=== PATIENT | female | born 1990 | race Caucasian/White ===

== ENCOUNTER 2025-01-30 11:48 | Outpatient (CLI) | payer OTHER, SELFPAY ==
--- OUTSIDE RECORDS SUMMARY | 2025-01-28 10:30 | XMS_ITS ---
Author Organization [facility] Address [address] [facility] [address] [place] [address] Care Team Providers Care Environmental Geologist Name Role Phone Candice Vazquez Unavailable [phone] Allergies No Known Allergies Results Component Value Reference Range Notes CBC Venipuncture (in house) Reviewed date:01/30/2025 08:41:39 AM Interpretation:Normal Performing Lab: Notes/Report: Normal wbc 4.9 3.5 - 10 lymph 39.8% 15 - 50 mid 7.6% 2 - 15 gran 52.6% 35 - 80 rbc 4.92 3.5 - 5.5 hgb 14.2 11.5 - 16.5 hct 40.6 35 - 55 mcv 82.6 75 - 100 mch 29.0 25 - 35 mchc 35.1 31 - 38 platlet 244 100 - 400 P-Vitamin B12 Reviewed date:01/30/2025 08:41:51 AM Interpretation:378 Performing Lab: Notes/Report: Test performed by [facility] [address] [place] [address], [place] [address] Abimael Neville MD, Security Door Installer CLIA: [id number] Vitamin B12 248 768-6042 pg/mL P-Comprehensive Metabolic Pa clarissa (CMP) Reviewed date:01/30/2025 08:41:56 AM Interpretation:Normal Performing Lab: Notes/Report: Test performed by [facility] [address] [place] [address], [place] [address] Abimael Neville MD, Security Door Installer CLIA: [id number] Sodium 141 135-145 mmol/L Potassium 4.6 3.5-5.3 mmol/L Chloride 105 97-108 mmol/L CO2 28 20-32 mmol/L Glucose 76 65-99 mg/dL BUN 14 6-20 mg/dL Creatinine 0.89 0.50-1.00 mg/dL Calcium 9.3 8.6-10.4 mg/dL eGFR by Creatinine 87 >59 mL/min/1.73m2 Protein 6.9 6.0-8.3 g/dL Albumin 4.4 3.5-5.3 g/dL Alkaline Phosphatase 77 35-121 IU/L ALT (SGPT) 18 <5-47 IU/L AST (SGOT) 20 <5-40 IU/L Bilirubin, Total 0.6 <0.2-1.2 mg/dL A/G Ratio 1.8 1.1-2.5 P-Sed Rate (ESR) Reviewed date:01/30/2025 08:42:01 AM Interpretation:Normal Performing Lab: Notes/Report: Test performed by [facility] [address] [place], [place] [address] [address] , [address], [place] [address] Abimael Neville MD, Security Door Installer CLIA: [id number] Erythrocyte Sedimentation Rate (ESR), Automated 2 <26 mm/hr P-TSH Reviewed date:01/30/2025 08:42:13 AM Interpretation:Normal Performing Lab: Notes/Report: Test performed by [facility] [address] [place] [address] , [address], [place] [address] Abimael Neville MD, Security Door Installer CLIA: [id number] TSH 1.60 0.43-5.25 mU/L REASON FOR VISIT to get established, migraines Medications Medication SIG (Take, Route, Frequency, Duration) Notes Start Date End Date Status Blisovi FE 06/04 1-20 MG-MCG 1 tablet Orally Once a day A ctive Rimegepant Sulfate 75 MG 1 tablet on the tongue and allow to dissolve Orally as needed 01/28/2025 Active Problems Problem Type SNOMED Code ICD Code Onset Dates Problem Status W/U Status Risk Notes Problem Cardiac dysrhythmia (462981674) Cardiac dysrhythmia, unspecified (I49.9) Active confirmed Vital Signs Blood pressure systolic 118 mm Hg 01/29/20 25 Blood pressure diastolic 72 mm Hg 025 Heart Rate 82 /min 01/28/2025 Height 61 in 01/28/2025 Weight 126.0 lbs 01/28/2025 BMI 23.8 kg/m2 01/28/2025 Encounters Encounter Location Date Provider Diagnosis [facility] [address] [place] [id number] 01/28/2025 Candice Vazquez Episodic migraine G43.909 and Cardiac dysrhythmia, unspecified I49.9 Assessments Encounter Date Diagnosis (ICD Code) Assessment Notes Treatment Notes Treatment Clinical Notes Section Notes 01/28/2025 Episodic migraine (ICD-10 - G43.909) 01/28/2025 Cardiac dysrhythmia, unspecified (ICD-10 - I49.9) Plan Of Treatment Medication Medication Name Sig Start Date Stop Date Notes Rimegepant Sulfate 75 MG 1 tablet on the tongue and allow to dissolve Orally as needed 01/28/2025 Pending Test Test Name Order Date Echocardiogram 01/28/2025 EKG 01/28/2025 Next Appt Details Follow Up: 2 Months, Reason: Provider Name:Candice Earl er, 04/01/2025 11:15:00 AM, [facility], [address], [place], [id number], Progress Notes * Ted DOMINGUEZeDOB:[birth year] (34 yo F)Acc No.[id number]:01/28/2025 Progress Notes Patient: Ritika IVEY Provider: Candice Vazquez M.D. :1990 A ge:34 Y S ex:Female Date:01/28/2025 Address:[address] [place] [address], [id number] Subjective: * Chief Complaints: * 1 . To get established, migraines. * HPI: H PI: The pt is here today to establish care and to discuss migraine headaches. Pt states she has tried Imitrex in the past, but that only helps if she takes it as soon as the migraine starts. Not frequent but there are occsions where she can for several days. Not related to menses. Not aware of food connections. Thyroid disease in family. Healty otherwise. Has had MRI evaluations. With childhood migraines she took Depakote and Phenobarbital. Did have some history of tachycardias, especially when young. * Medical History: S easonal allergies, Epilepsy childhood. * Family History: F ather: , family history unknown . M other: alive, diagnosed with Hypertension, Stroke, Heart Disease. M aternal Grand Father: alive, diagnosed with Heart Disease. M aternal Grand Mother: alive, diagnosed with Diabetes, Heart Disease. 1 brother(s) , 1 sister(s) - healthy. . Father of Covid. Mother had a mild stroke. * Social History: C URRENT TOBACCO USE: No . C affeine: yes, frequency: 3 cups coffee per day. Marital Status: . Alcohol: no. 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 Recreational drug use: no. * Medications: T ankush Blisovi FE 06/04 1-20 MG-MCG Tablet 1 tablet Orally Once a day , Medication List reviewed and reconciled with the patient * Allergies: N .K.D.A. Objective: * Vitals: W t: 126.0, Temp: 98.3, BP: 118/72, HR: 82, Nurse: HÉCTOR, Ht: 61, BMI:23.8. * Examination: G eneral Examination: General Appearance: N AD. H EENT: S clera and conjunctiva clear, PERRLA, fundi WNL, discs sharp. O ral cavity: n o lesions, mucosa moist and WNL, no erythema. N jens: s upple, no lymphadenopathy. C hest: n ormal shape and expansion. H eart: R SR, no murmurs, respiratory variability. L ungs: c lear to auscultation. N eurologic Exam: I ntact, gait normal. S kin: n ormal, no rash. P eripheral pulses: n ormal (2+) bilaterally. E xtremities: n o leg edema. Assessment: * Assessment: 1. E pisodic migraine - G43.909 (Primary) 2 . C ardiac dysrhythmia, unspecified - I49.9 Plan: * Treatment: 2. C ardiac dysrhythmia, unspecified L AB: P-Vitamin B12 (Collection Date & Time - 01/28/2025 02:57 PM) 3 78 Value Reference Range V itamin B12 485 626-8963 - pg/mL ?LAB: P-Comprehensive Metabolic Panel (CMP) (Collection Date & Time - 01/28/2025 02:57 PM)?Normal* Value Reference Range A /G Ratio 1.8 1.1-2.5 - * A lbumin 4.4 3.5-5.3 - g/dL * A lkaline Phosphatase 77 35-121 - IU/L * A LT (SGPT) 18 <5-47 - IU/L * A ST (SGOT) 20 <5-40 - IU/L * B ilirubin, Total 0.6 <0.2-1.2 - mg/dL * B UN 14 6-20 - mg/dL * C alcium 9.3 8.6-10.4 - mg/dL * C hloride 105 97-108 - mmol/L * C O2 28 20-32 - mmol/L * C reatinine 0.89 0.50-1.00 - mg/dL * G lucose 76 65-99 - mg/dL * P otassium 4.6 3.5-5.3 - mmol/L * S odium 141 135-145 - mmol/L * P rotein 6.9 6.0-8.3 - g/dL * e GFR by Creatinine 87 >59 - mL/min/1.73m2 ?LAB: P-Sed Rate (ESR) (Collection Date & Time - 01/28/2025 02:57 PM)?Normal * Value Reference Range E rythrocyte Sedimentation Rate (ESR), Automated 2 <26 - mm/hr ?LAB: P-TSH (Collection Date & Time - 01/28/2025 02:57 PM)?Normal* Value Reference Range T SH 1.60 0.43-5.25 - mU/L ?LAB: CBC Venipuncture (in house) (Collection Date & Time - 01/28/2025)? Normal* Value Reference Range w bc 4.9 3.5 - 10 * l ymph 39.8% 15 - 50 * m id 7.6% 2 - 15 * g ran 52.6% 35 - 80 * r bc 4.92 3.5 - 5.5 * h gb 14.2 11.5 - 16.5 * h ct 40.6 35 - 55 * m cv 82.6 75 - 100 * m ch 29.0 25 - 35 * m chc 35.1 31 - 38 * p latlet 244 100 - 400 * Renetta Beatty 01/28/2025 04 :47:22 PM EDT > pt informed ?Imaging: Echocardiogram* Sera Mcmahon 01/29/2025 10:2 8:25 AM EDT > [facility] ?Imaging: EKG* Sera Mcmahon 01/28/2025 03:4 7:09 PM EDT > printed to give to patient * Procedure Codes: 8 5025 CBC WITH AUTO DIFF, 01031 VENIPUNCT, ROUTINE* * Follow Up: 2 Months * Images: Billing Information: * Visit Code: 84723 Office Visit, New Pt., Level 3. * Procedure Codes: 81255 CBC WITH AUTO DIFF. 42699 VENIPUNCT, ROUTINE*. * Electronic signature of Candice Vazquez MD on 01/30/2025 at 12:01 PM EDT Sign off status: Pending * Provider: Candice Vazquez M.D. Date: 0 01/28/2025 Generated for Tamikoi shay/Hannah/eTransmitting on: 0 01/30/2025 12:01 PM EDT History and Physical Notes * Examination Category Sub-Category Detail Notes Category Not es General Examination HEENT: Sclera and c onjunctiva clear, PERRLA, fundi WNL, discs sharp Heart: RSR, no murmurs, res piratory variability Lungs: clear to auscultatio n Extremities: no leg edema General Appearance: NAD Skin: normal, no rash Neurologic Exam: Intact, gait normal Neck: supple, no lymphaden opathy Oral cavity: no lesions, mucosa m oist and WNL, no erythema Peripheral pulses: normal (2+) bilatera lly Chest: normal shape and exp ansion
--- OUTSIDE RECORDS SUMMARY | 2025-01-30 12:01 | XMS_ITS | Clinical Summary ---
Author Organization [facility] Address [address] [place] [address] Care Team Providers Care Crab Butcher Name Role Phone Mandy Ibarra MD Primary Care Provider [phone] Allergies Active Allergy Reactions Criticality Noted Date Comments Vancomycin Swelling 04/27/2023 Redness on back of neck and scalp Medications norethindrone-et hinyl estradiol (BLISOVI FE 06/04) 1-20 MG-MCG per tablet Take 1 tablet by mouth daily. 84 tablet 4 06/27/2024 Active Active Problems Problem Noted Date Diagnosed Date Conductive hearing loss, bilateral 10/24/2017 Impacted cerumen, bilateral 10/24/2017 Immunizations Immunization Administration Dates Next Due Tdap (Tetanus, Diphtheria & Pertussis) 6 Vitamin B12 04/12/2012 Family History Medical History Relation Name Comments Cancer Maternal Aunt Heart Failure Maternal Grandfather Diabetes Maternal Grandmother Heart Failure Maternal Grandmother Thyroid Disease Maternal Grandmother Thyroid Disease Mother Relation Name Status Comments Brother Alive Father COVID Father Maternal Aunt Maternal Grandfather Alive Maternal Grandmother Alive Mother Alive Mother Other 1 Sister 1 Other 2 Brother 1 Paternal Grandfather unknown Paternal Grandmother unknown Sister Alive Social History Tobacco Use Types Packs/Day Years Used Date Smoking Tobacco: Never Smokeless Tobacco: Never Tobacco Cessation:Counseling Given: No Alcohol Use Standard Drinks/Week Comments No 0 (1 standard drink = 0.6 oz pur e alcohol) Food Insecurities Answer Date Recorded Worried about running out of food Not on file 06/06/2023 Food Bought Not on file 06/06/2023 Housing/Utilities Answer Date Recorded Worried about losing home Not on file 2023 Stayed outside house Not on file 06/06/2023 Unable to get utilities Not on file 06/06/19 Interpersonal Safety Answer Date Record ed Feel physically or emotionally unsafe where curr ently live Not on file 06/06/2023 Harm by anyone Not on file 06/06/2023 Emotionally Harmed Not on file 06/06/2023 Transportation Answer Date Recorded Worried about transportation Not on file Comments No Sex and Gender Information Value Date Recorded Sex Assigned at Not on file Legal Sex Female 10:45 PM EDT Gender Identity Not on file Sexual Orientation Not on file Last Filed Vital Signs Vital Sign Reading Time Taken Comments Blood Pressure 119/79 06/27/2024 8:44 AM EST Pulse 73 06/27/2024 8:44 AM EST Temperature 36.8 C (98.2 F) 09/28/2019 10:27 AM EDT Respiratory Rate - - Oxygen Saturation 99% 06/27/2024 8:44 AM EST Inhaled Oxygen Concentration - - Weight 60.1 kg (132 lb 6.4 oz) 06/27/2024 8:44 A M EST Height 154.9 cm (5' 1 ) 06/27/2024 8:44 AM EST Body Mass Index 25.02 06/27/2024 8:44 AM EST Plan of Treatment Health Maintenance Due Date Last Done Comments HPV (1 - 3-dose SCDM series) 2017 Influenza Vaccine (#1) 2025 DTap,Tdap,and Td (2 - Td or Tdap) 04/20/2026 04/20/2016 Pap Screening 06/27/2027 06/27/2024, 10/0 07/2021, 11/12/2019, Additional history exists RSV Vaccine (60+ or ) (1 - 1-dose 75+ series) 2065 Meningococcal conjugate valent 4 (MCV4) Aged Out No longer eligible based on patient's age to complete this topic Pneumococcal 0-49 Aged Out No longer eligible based on patient's age to complete this topic RSV Immunization (<20 months) Aged Out No longer eligible based on patient's age to complete this topic Procedures Procedure Name Priority Date/Time Associated Diagnosis Comments CYTOLOGY TOOL AND DIE MAKER/DESIGNER Today 06/27/2024 9:07 AM EST Encounter for gynecological examination (general) (routine) without abnormal findings from Last 3 Months or Most Recently Relevant to Health Maintenance Results * CYTOLOGY TOOL AND DIE MAKER/DESIGNER (06/27/2024 9:07 AM EST) CYTOLOGY-TOOL AND DIE MAKER/DESIGNER CYTOLOGY GYNECOLOGICAL REPORT Name: RITIKA GERARDO [facility]#: [id number] Case #: [id number] Final Cytologic Diagnosis A. Thinprep Cervical/Endocervic al with HPV screen and 16/18 Genotyping if Indicated: Adequacy: Satisfactory for evaluation, endocervical transformation zone component present. Interpretation: Negative for intraepithelial lesion or malignancy. This specimen has been analyzed by the ThinPrep Imaging System ([employer] an automated imaging and review system, which assists the field software engineer and/or pathologist in evaluation of cells on Thinprep Pap tests. Electronically Signed Out By DAMARIS Soriano(ASCP) HPV HIGH RISK WITH REFLEX Not Detected 06/29/2024 Text/Comments: This test was performed using the FDA Approved APTIMA HPV mRNA assay which detects E6/E7 messenger RNA of High Risk HPV types (16, 18, 31, 33, 35, 39, 45, 51, 52, 56, 58, 59, 66, and 68). This assay is intended for use in women 21 years or older with ASC-US cervical cytology or women 30 years or older. This assay is not intended to substitute for regular cervical cytology screening. Detection of HPV using the APTIMA HPV Assay does not differentiate HPV types and cannot evaluate persistence of any one type. The use of this assay has not been evaluated for the management of HPV vaccinated women, women with prior ablative or excisional therapy, hysterectomy, or who are . Sensitivities may be affected by collection methods, stage of infection, and the presence of interfering substances. Results of this assay should be interpreted in conjunction with other available laboratory and clinical data. Thin Prep 06/28/2024 CERVIX 06/28/2024 Source of Specimen(s) A: Thinprep Cervical/Endocervic al with HPV screen and 16/18 Genotyping if Indicated Clinical History Menstrual History: Normal Contraceptive History: OC/BCP Signed out at [facility], [address] [place] [address] [facility] Non-Formatted Report [facility] 06/27/2024 9:07 AM EST 06/28/2024 11:05 AM EST us Zoya Oliveros MD PATHOLOGY/CYTOLOGY ORDERABLE S Final Result [facility] [address] [place] [address] from Last 3 Months or Most Recently Relevant to Health Maintenance [facility] Care Teams Crab Butcher Relationship Specialty Start Date End Date Mandy Ibarra MD PCP - General Internal Medicine 08/17/12
--- OUTSIDE RECORDS SUMMARY | 2025-01-30 12:01 | XMS_ITS | Encounter Summary ---
Author Organization [facility] Address [address] [place] [address] Care Team Providers Care Bag Turner Name Role Phone Mandy Ibarra MD Primary Care Provider [phone] Shanelle Oliveros MD [facility] Karmen Phillips MD Primary Care Provider [phone] Encounter Details Date Type Department Care Team (Late st Contact Info) Description 10/29/2019 E-Visit [facility] Information Desk [address] [place] [address] Mychart, Generic Provider Social History Tobacco Use Types Packs/Day Years Used Date Smoking Tobacco: Never Alcohol Use Standard Drinks/Week Comments No 0 (1 standard drink = 0.6 oz pur e alcohol) Comments Unknown Sex and Gender Information Value Date Recorded Sex Assigned at Not on file Legal Sex Female 1:25 PM EDT Gender Identity Not on file Sexual Orientation Not on file documented as of this encounter Plan of Treatment Not on file documented as of this encounter Visit Diagnoses Not on filedocumented in this encounter Care Teams Bag Turner Relationship Specialty Start Date End Date Mandy Ibarra MD PCP - General Internal Medicine 11/14/14 04/12/22 Karmen Phillips MD [address] [address] PCP - General Family Medicine 04/13/22 Shanelle Oliveros MD Dermatology 01/08/22 documented as of this encounter
--- OUTSIDE RECORDS SUMMARY | 2025-01-30 12:01 | XMS_ITS | Encounter Summary ---
Author Organization [facility] Address [address] [place] [address] Care Team Providers Care Utility Worker Driver Name Role Phone Mandy Ibarra MD Primary Care Provider [phone] Shanelle Oliveros MD [facility] Karmen Phillips MD Primary Care Provider [phone] Encounter Details Date Type Department Care Team (Late st Contact Info) Description 10/29/2019 E-Visit [facility] [address] [facility] [address] [place] [address] Shanelle Oliveros MD RE: RASH/SKIN LESION Social History Tobacco Use Types Packs/Day Years [...] on filedocumented in this encounter Care Teams Utility Worker Driver Relationship Specialty Start Date End Date Mandy Ibarra MD PCP - General Internal Medicine 11/14/14 04/12/22 Karmen Phillips MD [address] [address] PCP - General Family Medicine 04/13/22 Shanelle Oliveros MD Dermatology 01/08/22 documented as of this encounter
--- OUTSIDE RECORDS SUMMARY | 2025-01-30 12:02 | XMS_ITS | Encounter Summary ---
Author Organization [facility] Address [address] [place] [address] Care Team Providers Care Animal Skinner Name Role Phone Mandy Ibarra MD Primary Care Provider [phone] Shanelle Oliveros MD [facility] Karmen Phillips MD Primary Care Provider [phone] Encounter Details Date Type Department Care Team (Late st Contact Info) Description 08/12/2016 Abstract [facility] - Dermatology, [facility] [address] [place] [address] Shanelle Oliveros MD Social History Tobacco Use Types Packs/Day Years Used Date Smoking Tobacco: Never Assessed Comments Unknown Sex and Gender Information Value Date Recorded Sex Assigned at Not on file Legal Sex Female 1:25 PM EDT Gender Identity Not on file Sexual Orientation Not on file documented as of this encounter Plan of Treatment Not on file documented as of this encounter Visit Diagnoses Not on filedocumented in this encounter Care Teams Animal Skinner Relationship Specialty Start Date End Date Mandy Ibarra MD PCP - General Internal Medicine 11/14/14 04/12/22 Karmen Phillips MD [address] [address] PCP - General Family Medicine 04/13/22 Shanelle Oliveros MD Dermatology 01/08/22 documented as of this encounter
--- OUTSIDE RECORDS SUMMARY | 2025-01-30 12:02 | XMS_ITS | Clinical Summary ---
Author Organization [facility] Address [address] [place] [address] Care Team Providers Care Adjunct Instructor Chemistry Name Role Phone Mandy Ibarra MD Primary Care Provider [phone] Source Comments This information has been disclosed to you from confidential records protectedfrom disclosure by state law. You shall make no further disclosure of thisinformation without the specific, written, and informed release of theindividual to whom it pertains, or as otherwise permitted by law. A generalauthorization for the release of medical or other information is not sufficientfor the purposes of therelease of HIV test results or diagnoses. [id number] Allergies No known active allergies Medications lactobacillus rhamnosus, GG, (CULTURELLE) 10 billion cell capsule Take 1 capsule by mouth daily. Active cyanocobalamin (VITAMIN B-12) 100 MCG tablet Take 100 mcg by mouth daily. Active LO LOESTRIN FE 1 mg-10 mcg (24)/10 mcg (2) Tab TAKE 1 TABLET BY MOUTH DAILY 84 tablet 09/18/2019 Active Active Problems Problem Noted Date Diagnosed Date History of HPV infection 06/16/2018 Family History Medical History Relation Comments Heart disease Maternal Grandfather Diabetes Maternal Grandmother Thyroid disease Maternal Grandmother Relation Status Comments Maternal Grandfather Maternal Grandmother Social History Tobacco Use Types Packs/Day Years Used Date Smoking Tobacco: Never Smokeless Tobacco: Never Alcohol Use Standard Drinks/Week Comments No 0 (1 standard drink = 0.6 oz pur e alcohol) PHQ-2 Answer Date Recorded PHQ-2 Score 0 02/28/2019 Comments No Sex and Gender Information Value Date Recorded Sex Assigned at Not on file Legal Sex Female 12:31 PM EST Gender Identity Not on file Sexual Orientation Not on file Last Filed Vital Signs Vital Sign Reading Time Taken Comments Blood Pressure 112/72 06/16/2018 8:45 AM EST Pulse 75 06/16/2018 8:45 AM EST Temperature - - Respiratory Rate - - Oxygen Saturation 98% 06/16/2018 8:45 AM EST Inhaled Oxygen Concentration 98% 06/16/2018 8 :45 AM EST Weight 57.2 kg (126 lb) 06/16/2018 8:45 AM EST Height 154.9 cm (5' 1 ) 06/16/2018 8:45 AM EST Body Mass Index 23.81 06/16/2018 8:45 AM EST Plan of Treatment Not on file Care Teams Adjunct Instructor Chemistry Relationship Specialty Start Date End Date Mandy Ibarra MD PCP - General 06/16/18
--- OUTSIDE RECORDS SUMMARY | 2025-01-30 12:02 | XMS_ITS | Referral Summary ---
Author Organization [facility] Address [address] [place] [address] Care Team Providers Care Fiberglass Tube Molder Name Role Phone Mandy Ibarra MD Primary Care Provider [phone] Allergies Active Allergy Reactions Criticality Noted Date [...] Diphtheria & Pertussis) 6 Vitamin B12 04/12/2012 Social History Tobacco Use Types Packs/Day Years [...] 06/27/2024 8:44 AM EST Plan of Treatment Not on file Procedures Procedure Name Priority Date/Time Associated Diagnosis Comments CYTOLOGY ELECTRIC DEICER INSPECTOR Today 06/27/2024 9:07 AM EST Encounter for gynecological examination (general) (routine) without abnormal findings from Last 3 Months or Most Recently Relevant to Health Maintenance Results * CYTOLOGY ELECTRIC DEICER INSPECTOR (06/27/2024 9:07 AM EST) CYTOLOGY-ELECTRIC DEICER INSPECTOR CYTOLOGY GYNECOLOGICAL REPORT Name: RITIKA GERARDO EPI#: [id number] Case #: [id number] Final Cytologic Diagnosis A. Thinprep Cervical/Endocervic al with HPV screen and 16/18 Genotyping if Indicated: Adequacy: Satisfactory for evaluation, endocervical transformation zone component present. Interpretation: Negative for intraepithelial lesion or malignancy. This specimen has been analyzed by the ThinPrep Imaging System ([employer] an automated imaging and review system, which assists the trauma doctor and/or pathologist in evaluation of cells on [...] Normal Contraceptive History: OC/BCP Signed out at [facility], [address] [place] [address] [facility] Non-Formatted Report [facility] 06/27/2024 9:07 AM EST 06/28/2024 11:05 AM EST Zoya Oliveros MD PATHOLOGY/CYTOLOGY ORDERABLE S Final Result Performing Organization Address City/State/[facility] Co de Phone Number [facility] [address] [place] [address] from Last 3 Months or Most Recently Relevant to Health Maintenance Insurance [facility] Care Teams Fiberglass Tube Molder Relationship Specialty Start Date End Date Mandy Ibarra MD PCP - General Internal Medicine 08/17/12
--- OUTSIDE RECORDS SUMMARY | 2025-01-30 12:02 | XMS_ITS | Encounter Summary ---
Author Organization [facility] Address [address] [place] [address] Phone Care Team Providers Care Newspaper Manager Name Role Phone Mandy Ibarra MD Primary Care Provider [phone] Reason for Visit * Reason Comments Refill Request Encounter Details Date Type Department Care Team (Late st Contact Info) Description 07/16/2024 Refill [facility] [place], [place] [id number] [place] [address] Zoya Oliveros MD [address] [place], [place] [id number] Social History Tobacco Use Types Packs/Day Years [...] on filedocumented in this encounter Care Teams Newspaper Manager Relationship Specialty Start Date End Date Mandy Ibarra MD PCP - General Internal Medicine 08/17/12 documented as of this encounter
--- OUTSIDE RECORDS SUMMARY | 2025-01-30 12:02 | XMS_ITS | Clinical Summary ---
Author Organization [facility] Address [address] [place] [address] Phone Care Team Providers Care Audograph Operator Name Role Phone Karmen Phillips MD Primary Care Provider [phone] Allergies Active Allergy Reactions Criticality Noted Date Comments Vancomycin Itching,Rash Medium 02/28/2023 Received Vanc and had burning, itching, redness around IV. Responded well with Benadryl. Medications norethindrone-e. estradioL-iron (LO LOESTRIN FE) 1 mg-10 mcg (24)/10 mcg (2) Oral Tablet 09/18/2019 Active amoxicillin-clav ulanate (AUGMENTIN) 875-125 mg Oral TabletIndication s:cat bite wound Take 875 mg by mouth 2 times daily. Indications : cat bite wound Active amoxicillin-clav ulanate (AUGMENTIN) 875-125 mg Oral Tablet Take 1 Tablet by mouth 2 times daily. 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 Conductive hearing loss, bilateral 10/24/2017 Impacted cerumen, bilateral 10/24/2017 Immunizations Immunization Administration Dates Next Due Tdap 04/20/2016 Surgical History Surgery Date Site/Laterality Comments HAND SURGERY 02/28/2023 Hand/Wrist/Right Right Long Finger flexor tendon sheath Incision and Drainage; Surgeon: Sammy Yu MD; Location: [facility]; Service: Hand Family History Medical History Relation Name Comments Cancer Maternal Aunt Diabetes Maternal Grandmother Hearing Loss Maternal Grandmother High Blood Pressure Maternal Grandmother Cancer Maternal Uncle Arthritis Mother Relation Name Status Comments Maternal Aunt Maternal Grandmother Maternal Uncle Mother Social History Tobacco Use Types Packs/Day Years Used Date Smoking Tobacco: Never Smokeless Tobacco: Never Tobacco Cessation:Counseling Given: Not Answered Alcohol Use Standard Drinks/Week Comments Never 0 (1 standard drink = 0.6 oz pur e alcohol) Overall Financial Resource Strain (CARDIA) Answe r Date Recorded How hard is it for you to pa y for the very basics like food, housing, medical care, and heating? Not hard at all 02/28/2023 PHQ-2 Answer Date Recorded PHQ-2 Total Score 0 02/28/2023 Exercise Vital Sign Answer Date Recorde d On average, how many days pe r week do you engage in moderate to strenuous exercise (like a brisk walk)? 0 days 02/28/2023 On average, how many minutes do you engage in exercise at this level? 0 min 02/28/2023 Hunger Vital Sign Answer Date Recorded Within the past 12 months, y ou worried that your food would run out before you got the money to buy more. Never true 02/29/20 23 Within the past 12 months, t he food you bought just didn't last and you didn't have money to get more. Never true 02/28/2023 PRAPARE - Transportation Answer Date Re corded In the past 12 months, has l ack of transportation kept you from medical appointments or from getting medications? No 02/13 In the past 12 months, has l ack of transportation kept you from meetings, work, or from getting things needed for daily living? No 02/28/2023 Comments No Sex and Gender Information Value Date Recorded Sex Assigned at Not on file Legal Sex Female 4:11 PM EST Gender Identity Not on file Sexual Orientation Not on file Obstetrics History Para Term AB IAB SAB Ectopic Multiple Livin g Live Births 0 0 0 0 0 0 0 0 0 0 0 Last Filed Vital Signs Vital Sign Reading Time Taken Comments Blood Pressure 104/62 03/01/2023 9:04 AM EDT Pulse 64 03/01/2023 9:04 AM EDT Temperature 36.7 C (98.1 F) 03/01/2023 9:04 AM EDT Respiratory Rate 18 03/01/2023 9:04 AM EDT Oxygen Saturation 99% 03/01/2023 9:04 AM EDT Inhaled Oxygen Concentration - - Weight 59 kg (130 lb) 06/15/2023 10:38 AM EST Height 154.9 cm (5' 1 ) 06/15/2023 10:38 AM EST Body Mass Index 24.56 06/15/2023 10:38 AM EST Plan of Treatment Health Maintenance Due Date Last Done Comments Annual Wellness Exam 1993 Hepatitis B Vaccine (1 of 3 - 19+ 3-dose series) 2009 HPV/Pap Cotest 2020 COVID-19 Vaccine (2023-2 5 season) 2025 Influenza Vaccine (#1) 2025 Cervical Cancer Screening 02/15/2025 Pap Smear 02/15/2025 02/15/2022, 11/12/2019 DTaP/TDaP/Td (2 - Td or Tdap) 04/20/2026 04/20/2016 Meningococcal B Vaccine Aged Out No l onger eligible based on patient's age to complete this topic Pneumococcal Vaccine 0-49 Aged Out No longer eligible based on patient's age to complete this topic Insurance [facility] Member Subscriber Plan / Payer (Ef fective 2023-Present) Name:Ritika Dominguez Relation to Subscriber:Employee Name:RITIKA DOMINGUEZ Date of :1990 (Home) Address: [address] [place] [address] Payer ID:Not on file Group ID[facility] 03/08/23 Type:Not on file Address: [address] [place] [address] [facility] Member Subscriber Plan / Payer (Ef fective 2023-Present) Name:Ritika Domignuez Relation to Subscriber:Employee Name:RITIKA DOMINGUEZ Date of :1990 (Home) Address: [address] [place] [address] Payer ID:Not on file Group ID:[facility] [place] [facility] 03/08/23 Type:Not on file Address: [address] [place] [phone] [address] [place] [address] [address] [facility] Member Subscriber Plan / Payer (Ef fective 2023-Present) Name:Ted Dominguezwhitney Relation to Subscriber:Employee Name:RITIKA DOMINGUEZ Date of :1990 (Home) Address: [address] [place] [address] Payer ID:Not on file Group ID:[facility] 03/08/23 Type:Not on file Address: [address] [place] [phone] [address] [address] [place] [address] [address] Advance Directives For more information, please contact: [phone] * Full Code (Latest Code Status on File) Date Activated Date Inactivated Comments 02/27/2023 7:32 PM 03/01/2023 8:04 PM Care Teams Audograph Operator Relationship Specialty Start Date End Date Karmen Phillips MD [address] [place] [address] PCP - General Student in an Organized Health Care Education/Training Program 06/18/22
--- OUTSIDE RECORDS SUMMARY | 2025-01-30 12:02 | XMS_ITS | Patient Health Record ---
[facility] [address] [facility] [address] [facility] [address] [place] [id number] Care Team Providers Care Sales Agent Protective Service Name Role Phone Candice Vazquez Unavailable [phone] Hamilton Moura Unavailable [phone] Allergies No Known Allergies Results Component Value [...] Interpretation:378 Performing Lab: Notes/Report: Test performed by [facility] [address] [place] [address] [place] [address] Abimael Neville MD, Category Consultant CLIA: [id number] Vitamin B12 [phone] pg/mL P-Comprehensive Metabolic Pa clarissa (CMP) Reviewed date:01/30/2025 08:41:56 AM Interpretation:Normal Performing Lab: Notes/Report: Test performed by [facility] [address] [place] [address] , [address] C, [place] [address] Abimael Neville MD, Category Consultant CLIA: [id number] Sodium 141 135-145 mmol/L Potassium 4.6 3.5-5.3 [...] Interpretation:Normal Performing Lab: Notes/Report: Test performed by [facility] [address] [place] [address] , [address], [place] [address] Abimael Neville MD, Category Consultant CLIA: [id number] Erythrocyte Sedimentation Rate (ESR), Automated 2 <26 mm/hr P-TSH Reviewed date:01/30/2025 08:42:13 AM Interpretation:Normal Performing Lab: Notes/Report: Test performed by [facility] [address] [place] [address] , [address], [place] [address] Abimael Neville MD, Category Consultant CLIA: [id number] TSH 1.60 0.43-5.25 mU/L Reason For Referral No Information Medications Medication SIG (Take, Route, Frequency, Duration) Notes Start Date End Date Status Rimegepant Sulfate 75 MG 1 tablet on the tongue and allow to dissolve Orally as needed 01/28/2025 Active Blisovi FE 06/04 1-20 MG-MCG 1 tablet Orally Once a day A ctive Problems Problem Type SNOMED Code ICD Code Onset Dates Problem Status W/U Status Risk Notes Problem Cardiac dysrhythmia (279001894) Cardiac dysrhythmia, unspecified (I49.9) Active confirmed Vital Signs Heart Rate 82 /min 01/28/2025 Blood pressure diastolic 72 mm Hg 01/28/2025 Height 61 in 01/28/2025 Blood pressure systolic 118 mm Hg 01/28/2025 Weight 126.0 lbs 01/28/2025 BMI 23.8 kg/m2 01/28/2025 Encounters Encounter Location Date Provider Diagnosis [facility] [address] [facility] [address] [place] [id number] 01/28/2025 Candice Vazquez Episodic migraine G43.909 and Cardiac dysrhythmia, unspecified I49.9 [facility] [address] [facility] [address] [place] [id number] 01/29/2025 Hamilton Moura Episodic migraine G43.909 Assessments Encounter Date Diagnosis (ICD Code) Assessment Notes Treatment Notes Treatment Clinical Notes Section Notes 01/28/2025 Cardiac dysrhythmia, unspecified (ICD-10 - I49.9) 01/28/2025 Episodic migraine (ICD-10 - G43.909) 01/29/2025 Episodic migraine (ICD-10 - G43.909) Plan Of Treatment Pending Test Test Name Order Date Echocardiogram 01/28/2025 EKG 01/28/2025 Next Appt Details Provider Name:Candice Earl er, 04/01/2025 11:15:00 AM, [address] [facility], [address], [place], [id number], Insurance Providers Payer Name Payer Address Payer Phone Subscriber Number Group Number Insured Name Patient Relationship to Insured Coverage Start Date Coverage End Date [facility] ARE [address] [place] [address] [phone] [id number] Ritika Dominguez Self - patient is the insured Medical (General) History Medical History History ICD Code seasonal allergies epilepsy childhood
--- OUTSIDE RECORDS SUMMARY | 2025-01-30 12:02 | XMS_ITS | Clinical Summary ---
Author Organization [facility] Address [address] [facility], [address] [place] [address] Care Team Providers Care Tire Repair Mechanic Name Role Phone Unavailable Primary Care Provider Unavailabl e Allergies No known active allergies Medications norethindrone-et hinyl estradiol-Fe (LO LOESTRIN FE) 1 MG-10 MCG / 10 MCG tablet TAKE 1 TABLET BY MOUTH DAILY 09/18/2019 Active Social History Tobacco Use Types Packs/Day Years Used Date Smoking Tobacco: Never Smokeless Tobacco: Never Comments Unknown Sex and Gender Information Value Date Recorded Sex Assigned at Not on file Legal Sex Female 6:09 PM EDT Gender Identity Not on file Sexual Orientation Not on file Last Filed Vital Signs Vital Sign Reading Time Taken Comments Blood Pressure - - Pulse - - Temperature 36.7 C (98.1 F) 02/11/2020 10:52 AM EDT Respiratory Rate - - Oxygen Saturation - - Inhaled Oxygen Concentration - - Weight 52.2 kg (115 lb) 02/11/2020 10:52 AM EDT Height 154.9 cm (5' 1 ) 02/11/2020 10:52 AM EDT Body Mass Index 21.73 02/11/2020 10:52 AM EDT Plan of Treatment Not on file Insurance CLAIM [employer]
--- OUTSIDE RECORDS SUMMARY | 2025-01-30 12:02 | XMS_ITS | Clinical Summary ---
Author Organization [facility] Address [address] [place] [address] Care Team Providers Care Clutch Operator Name Role Phone Shanelle Oliveros MD, Tamara MD Primary Care Provider [phone] Allergies No known active allergies Medications mupirocin (BACTROBAN) 2 % ointment Apply by qtip daily in both nostrils for 2 weeks. 22 g 2 Active Additional Information Patient not taking.Reported on 09/08/2022 norethindrone-e .estradioL-iron 1 mg-10 mcg (24)/10 mcg (2) Tablet Take 1 Tablet by mouth. 3 Active meloxicam (MOBIC) 15 mg tablet Take 1 Tablet (15 mg) by mouth daily. 30 Tablet 3 Active montelukast (SINGULAIR) 10 mg Tablet Take 1 Tablet (10 mg) by mouth daily. 30 Tablet 3 Active azelastine (ASTELIN) 137 mcg (0.1 %) Aerosol, [place] 2 Sprays into nose 2 times daily. Use in each nostril as directed 30 mL 3 Active amoxicillin-cla vulanate (AUGMENTIN) 875-125 mg per tablet Take 875 mg by mouth 2 times daily. 3 Active Active Problems Problem Noted Date Diagnosed Date Establishing care with new doctor, encounter for 04/16/2022 Hx of abscess of skin and subcutaneous tissue Immunizations Immunization Administration Dates Next Due Tdap 04/20/2016 Unknown Incoming Vaccine 04/12/2012 Family History Medical History Relation Name Comments Diabetes Maternal Grandmother Melanoma Other 1 great aunt Melanoma Other 2 greatgrandmother Relation Name Status Comments Father Alive Maternal Grandmother Alive Mother Alive Other 1 great aunt Alive Other 2 greatgrandmother Alive Social History Tobacco Use Types Packs/Day Years Used Date Smoking Tobacco: Never Smokeless Tobacco: Never Tobacco Cessation:Counseling Given: Not Answered Alcohol Use Standard Drinks/Week Comments No 0 (1 standard drink = 0.6 oz pur e alcohol) PHQ-2 Answer Date Recorded PHQ-9 Auto Total 0 04/13/2022 Comments No Sex and Gender Information Value Date Recorded Sex Assigned at Not on file Legal Sex Female 1:25 PM EDT Gender Identity Not on file Sexual Orientation Not on file Last Filed Vital Signs Vital Sign Reading Time Taken Comments Blood Pressure 104/80 09/08/2022 10:30 AM EDT Pulse 56 09/08/2022 10:30 AM EDT Temperature - - Respiratory Rate - - Oxygen Saturation 98% 09/08/2022 10:30 AM EDT Inhaled Oxygen Concentration - - Weight 57.2 kg (126 lb) 09/08/2022 10:30 AM EDT Height 154.9 cm (5' 1 ) 09/08/2022 10:30 AM EDT Body Mass Index 23.81 09/08/2022 10:30 AM EDT Plan of Treatment Health Maintenance Due Date Last Done Comments HPV Vaccine (1 - 3-dose SCDM series) 2017 Depression Screening 05/16/2024 04/13/2022 Influenza Vaccination (#1) 2025 Cervical Cancer Screening 02/15/2025 02/15/2022 Tetanus Vaccination (Every 10 Years) 04/20/2026 12/0 10/2015 Lipid Screening Completed 04/13/2022 COVID-19 Vaccine Discontinued Procedures Procedure Name Priority Date/Time Associated Diagnosis Comments LIPID PROFILE Routine 04/13/2022 2:49 PM EST Establishing care with new doctor, encounter for from Last 3 Months or Most Recently Relevant to Health Maintenance Results * (ABNORMAL) LIPID PROFILE (04/13/2022 2:49 PM EST) Chol/HDL Ratio 3.6 0 - 5 [facility] Cholesterol 175 125 - 199 mg/dL [facility] EXTERNAL [facility] Comment: TOTAL CHOLESTEROL INTERPRETATION: Less than 200 mg/dL Desireable 200-239 mg/dL Borderline Greater or Equal to 240 mg/dL High LDL Calculated 108(H) 0 - 100 mg/dL [facility] EXTERNAL LAB Comment: LDL CHOLESTEROL INTERPRETATION: Less than 100 mg/dL Optimal 100-129 mg/dL Near optimal/above optimal 130-159 mg/dL Borderline High 160-189 mg/dL High Greater or Equal to 190 mg/dL Very High HDL 49 40 - 180 mg/dL [facility] EXTERNAL LAB Comment: HDL CHOLESTEROL INTERPRETATION: Less than 40 mg/dL Low Greater than 60 mg/dL Desirable Triglycerides 89 0 - 149 mg/dL TC EXTERNAL LAB Comment: TOTAL TRIGLYCERIDE INTERPRETATION: Less than 150 mg/dL Normal 150-199 mg/dL Borderline HIgh 200-499 mg/dL High Greater or Equal to 500 mg/dL Very High Serum (Serum) 04/13/2022 2:4 9 PM EST 04/13/2022 8:29 PM EST us Karmen Phillips MD CHEMISTRY ORDERABLES Final Re sult [facility] [address] from Last 3 Months or Most Recently Relevant to Health Maintenance Insurance OTHER MANAGED [employer] [facility]/[facility] Care Teams Clutch Operator Relationship Specialty Start Date End Date Karmen Phillips MD [address] [place] [address] PCP - General Family Medicine 04/13/22 Shanelle Oliveros MD Dermatology 01/08/22
--- NOTE | 2025-01-30 12:10 | ECG_ITS ---
APPROVED REPORT Exam: Resting ECG HR:69 bpm ECG Measurements Heart Rate 69 AXES NJ 112 P 68 QRSd 86 QRS 83 QT 352 T 66 QTc 370 Conclusion SINUS RHYTHM WITH SHORT NJ INTERVAL BORDERLINE ECG UNCONFIRMED REPORT Electronically signed by : Sam Isabel MD 01/30/2025 17:23:49
== END 2025-01-30 23:59 | disposition home or self-care (01) ==
LOC: RT 11:56
PROVIDERS: PCP Family Medicine; Visit Provider Family Medicine
DX: I49.9 Cardiac arrhythmia, unspecified (principal); R94.31 Abnormal electrocardiogram [ECG] [EKG]
CPT/HCPCS: 93005

== ENCOUNTER 2025-02-21 12:45 | Outpatient (CLI) | payer OTHER, SELFPAY ==
--- NOTE | 2025-02-21 12:46 | CA_ITS ---
APPROVED REPORT EXAM: Comprehensive 2D, Doppler, and color-flow Echocardiogram Optometric Technologist: Carie Shah RVT Ht: 5 ft 1 in Wt: 125lbs BSA: 1.55 BP: 123/65 mmHg Indications: PALPITATIONS 2D Dimensions IVSd 0.56 cm F: 0.6-1.0 LVEF (Visual) 56.10 % PWd 0.51 cm F: 0.6 - 1.0 LA Volume 25.30 mL LVDd 4.87 cm F: 3.9 - 5.3 LA Volume Index 16.32 mL/m2 (M/F) 16-34 LVDs 3.44 cm F: 2.2 - 3.5 M-Mode Dimensions LA Diam 2.35 cm (1.9-4.0) TAPSE 2.07 (<1.7) LV Diastology E Decel Time 277 (160-240 msec) E/A Ratio 1.2 Aortic Valve WINIFRED Index 1.53 cm2/m2 AoV Peak Robby. 154.0 (50-130 cm/s) AO Peak GR. 9.50 mmHg AO Mean GR. 5.60 (<5 mmHg) AO VTI 30.6 (18-25 cm) WINIFRED (VTI) 2.42 (2.5-4.5 cm2) Mitral Valve MV E Max Robby. 71.0 (40-130 cm/s) MV A Velocity 57.0 (40-130 cm/s) E/A Ratio 1.25 MV PHT 81.0 ms Pulmonary Valve PV Peak Velocity 95.0 (50-150 cm/s) Tricuspid Valve TR P. Velocity 245.00 cm/s RAP Estimate 8.00 mmHg RVSP 32.00 mmHg Left Ventricle The left ventricle is normal size. Left ventricular systolic function is normal. The left ventricular ejection fraction is within the normal range. There is normal left ventricular wall thickness. There is normal LV segmental wall motion. The left ventricular diastolic function is normal. LVEF is 55% Right Ventricle The right ventricle is normal size. The right ventricular systolic function is normal. Atria The left atrium size is normal. The right atrium size is normal. There is no color Doppler evidence of interatrial shunt. Aortic Valve The aortic valve opens well. There is no hemodynamically significant aortic valvular stenosis. No aortic regurgitation is present. Mitral Valve The mitral valve is normal in structure. No evidence of mitral valve stenosis. Trace mitral regurgitation is present. Tricuspid Valve The tricuspid valve leaflets are thin and pliable. Mild tricuspid regurgitation. RVSP is 20-25 mmHg. Pulmonic Valve The pulmonary valve is grossly normal in structure. Trace pulmonic valve regurgitation is present. Great Vessels The aortic root is normal in size. IVC is normal in size and collapses >50% with inspiration. Pericardium There is no pericardial effusion. Other Information Study Quality: Fair Conclusion Normal biventricular systolic function. Mild TR. Electronically signed by : Betzy Avelar MD 02/24/2025 22:42:18
== END 2025-02-21 23:59 | disposition home or self-care (01) ==
PROVIDERS: PCP Family Medicine; Visit Provider Family Medicine
DX: I07.1 Rheumatic tricuspid insufficiency (principal); I49.9 Cardiac arrhythmia, unspecified
CPT/HCPCS: 93306